=== PATIENT | male | born 1985 | race Caucasian/White ===

== ENCOUNTER 2025-01-17 14:32 | Outpatient (CLI) | payer OTHER, SELFPAY ==
--- NOTE | ~2025-01-17 | XR_ITS ---
XR knee LT 3V 01/17/2025 15:02 Indication: Left knee pain Procedure: 3 views left knee Comparison: No prior studies for comparison. Findings: No acute fracture, subluxation or dislocation. There is patellofemoral compartment osteoart hritis. No significant joint effusion. Impression: 1: Mild patellofemoral compartment osteoarthritis. Reviewed, dictated and finalized at location A. Impression: 1: Mild patellofemoral compartment osteoarthritis.
--- NOTE | ~2025-01-17 | XR_ITS ---
XR thoracic spine 3V 01/17/2025 15:02 Indication: Back pain Procedure: 3 views thoracic spine Comparison: No prior studies for comparison. Findings: No fracture, subluxation or dislocation. T12 is not completely visualized. No paraspinal so ft tissue abnormality. Pedicles intact. Surrounding osseous structures within normal limits. Impression: 1: No significant abnormality of the thoracic spine. Reviewed, dictated and finalized at location A. Impression: 1: No significant abnormality of the thoracic spine.
--- NOTE | ~2025-01-17 | XR_ITS ---
XR shoulder RT min 2V 01/17/2025 15:02 Indication: Right shoulder pain. Rotator cuff injury. Procedure: 4 views right shoulder Comparison: No prior studies for comparison. Findings: There is anatomic alignment. No fracture, subluxation or dislocation. No soft tissue abnorm ality. Impression: 1: No significant bone or joint abnormality. Reviewed, dictated and finalized at location A. Impression: 1: No significant bone or joint abnormality.
== END 2025-01-17 14:33 | disposition home or self-care (01) ==
LOC: MICIMG 14:38
DX: M67.911 Unspecified disorder of synovium and tendon, right shoulder (principal); M54.50 Low back pain, unspecified; M17.12 Unilateral primary osteoarthritis, left knee
CPT/HCPCS: 72072; 73030; 73562